=== PATIENT | male | born 1965 | race Caucasian/White ===

== ENCOUNTER 2020-02-02 18:06 | Emergency (ER) | payer MEDICAID ==
[~2020-02-02] VITALS: Ht 182.9 cm; Wt 68.0 kg
[2020-02-02 18:09] VITALS: BP 124/58
--- NOTE | 2020-02-02 18:57 | NUR ---
54 Y/O MALE BIBA FROM HOME C/O CHRONIC ABD PAIN WITH N/V/D. STATES MULTIPLE EPISODES OF VOMITING AND DIARRHEA TODAY. 8/10 SHARP ABD PAIN. ABD SOFT, FLAT, NONTENDER TO PALP. BOWEL SOUNDS PRESENT X 4 QUAD. PT POSITIONED FOR COMFORT. VSS MEDHX: PANCREATITIS, HTN, CHF
[2020-02-02 18:59] LABS: BASOPHILS # (AUTO) 0.1 K/uL (0.00-0.22); BASOPHILS % (AUTO) 0.5 % (0.0-2.0); EOSINOPHILS # (AUTO) 0.1 K/uL (0-0.4); EOSINOPHILS % (AUTO) 0.5 % (0.0-4.0); HEMATOCRIT 25.8 % (36-52); HEMOGLOBIN 8.5 g/dL (12.0-18.0); LYMPHOCYTES # (AUTO) 0.7 K/uL (2.0-11.5); LYMPHOCYTES % (AUTO) 5.7 % (20.5-51.1); MEAN CORPUSCULAR HEMOGLOBIN 30 pg (27-31); MEAN CORPUSCULAR HGB CONC 33 g/dL (33-37); MEAN CORPUSCULAR VOLUME 90.5 fL (80-94); MONOCYTES % (AUTO) 7.6 % (1.7-9.3); NEUTROPHILS # (AUTO) 10.9 K/uL (1.8-7.7); NEUTROPHILS % (AUTO) 85.7 % (42.2-75.2); PLATELET COUNT (AUTO) 173 K/uL (140-450); RED BLOOD CELL COUNT(AUTO) 2.85 MIL/uL (4.20-6.10); RED CELL DISTRIBUTION WIDTH 14.4 % (11.6-13.7); WHITE BLOOD COUNT (AUTO) 12.8 K/uL (4.8-10.8)
[2020-02-02 19:16] LABS: ALBUMIN 2.1 g/dL (3.4-5.0); ANION GAP 13.1 (8-16); CREATININE 1.5 mg/dL (0.6-1.3); POTASSIUM 3.1 mmol/L (3.5-5.1); TOTAL BILIRUBIN 2.1 mg/dL (0.0-1.0)
--- NOTE | 2020-02-02 19:16 | NUR ---
report given to Bertha Herrera, transfer of care at this time
--- NOTE | 2020-02-02 19:20 | NUR ---
RECIVED REPORT FROM DIAZ CARMEN. [facility].
[2020-02-02] MEDS ORDERED: MORPHINE SULFATE 4 MG/ML SYR IVP ONE (19:35)
[2020-02-02] MEDS ORDERED: ONDANSETRON 4 MG/2 ML VIAL IVP ONE (19:35)
[2020-02-02] MEDS ORDERED: KETOROLAC 30 MG/ML VIAL IVP ONE (19:35)
[2020-02-02] MEDS ORDERED: NACL 0.9% 1,000 ML IV ONE (19:35)
--- NOTE | 2020-02-02 20:22 | NUR ---
ERMD AT BEDSIDE.
--- NOTE | 2020-02-02 20:25 | NUR ---
PT STATES ABD PAIN HAS DECREASED FROM 10/10 TO 2/10 PAIN. PT STATES NO LONGER FEELS NAUSOUES AND APPITTIE HAS RETURNED.
[2020-02-02 20:31] LABS: APPEARANCE,URINE CLEAR (CLEAR); BILIRUBIN,URINE 1+ (NEGATIVE); BLOOD, URINE NEGATIVE (NEGATIVE); LEUKOCYTE ESTERASE ,URINE NEGATIVE (NEGATIVE); NITRITE, URINE NEGATIVE (NEGATIVE); PH,URINE 5.5 (5.0-9.0); UGLUCOSE NEGATIVE (NEGATIVE)
[2020-02-02 20:33] LABS: COLOR,URINE AMBER (YELLOW)
--- NOTE | 2020-02-02 20:40 | NUR ---
PT ROAD TESTED. PT ABLE TO AMBULATE WITH STEADY GAIT. PT DENIES ANY DIZZYNESS. PT STATES WILL PICK HIM UP.
--- NOTE | 2020-02-02 20:42 | NUR ---
IV removed, catheter intact and site benign. Applied folded 4x4 gauze and tape to stop bleeding.
[2020-02-02 20:45] VITALS: BP 122/60
--- NOTE | 2020-02-02 20:45 | NUR ---
Patient discharged with v/s stable. Written and verbal after care instructions given and explained. Patient alert, oriented and verbalized understanding of instructions. Ambulatory with steady gait. All questions addressed prior to discharge. ID band removed. Patient advised to follow up with PMD. Rx of PEPCID AND MYLANTA given. Patient educated on indication of medication including possible reaction and side effects. Opportunity to ask questions provided and answered.
== END 2020-02-02 20:45 | disposition home or self-care (01) ==
LOC: MED 18:06
DX: K29.70 Gastritis, unspecified, without bleeding (principal); D64.9 Anemia, unspecified; E86.0 Dehydration; E87.1 Hypo-osmolality and hyponatremia; I10 Essential (primary) hypertension; I50.9 Heart failure, unspecified
CPT/HCPCS: 36415; 80053; 81003; 83690; 85025; 96361; 96374; 96375; 99284; J1885; J2270; J2405; J7030